=== PATIENT | male | born 1995 | race Two or more races ===

== ENCOUNTER 2020-08-10 14:23 | Outpatient (CLI) | payer OTHER | END 2020-08-10 14:34 | disposition home or self-care (01) | LOC: SONOGRAMA 14:23 | DX: N63.31 Unspecified lump in axillary tail of the right breast (principal); M79.621 Pain in right upper arm ==

== ENCOUNTER 2021-03-03 09:00 | Outpatient (CLI) | payer OTHER | END 2021-03-03 09:15 | disposition home or self-care (01) | LOC: PPH VACUNA 09:00 | PROVIDERS: ATTEND Emergency Medicine Pediatric Emergency Medicine | DX: Z23 Encounter for immunization (principal) ==